=== PATIENT | male | born 1980 | race Caucasian/White ===

== ENCOUNTER 2022-03-18 18:41 | Inpatient (IN) | payer OTHER ==
[2022-03-18 19:34] VITALS: BMI 22.2
[2022-03-19] MEDS ORDERED: NICOTINE 10 MG CARTRIDGE (INHALER) IH PRN (08:50)
[2022-03-19] MEDS ORDERED: IBUPROFEN 400 MG TABLET (FP) PO PRN (08:50)
[2022-03-19] MEDS ORDERED: P-EPHED 60MG/TRIPROLIDI 2.5MG TABLET PO PRN (08:50)
[2022-03-19] MEDS ORDERED: MAG HYDROX/AL HYDROX/SIMETH 30 ML UNIT-DOSE CUP PO PRN (08:50)
[2022-03-19] MEDS ORDERED: POLYETHYLENE GLYCOL (HEALTHYLAX) 3350 17 GM PACKET PO PRN (08:50)
[2022-03-19] MEDS ORDERED: MAGNESIUM HYDROX 2400MG/30ML ORAL SUSPENSION 30 ML CUP PO PRN (08:50)
[2022-03-19] MEDS ORDERED: LOPERAMIDE HCL 2 MG CAPSULE PO PRN (08:50)
[2022-03-19] MEDS ORDERED: BENZOCAINE/MENTHOL (CHLORASEPTIC ) LOZENGE MM PRN (08:50)
[2022-03-19] MEDS ORDERED: ACETAMINOPHEN 325 MG TABLET (FP) PO PRN (08:50)
[2022-03-19] MEDS ORDERED: guaiFENesin 200 MG/10 ML 10 ML UNIT-DOSE CUPS PO PRN (08:50)
[2022-03-19] MEDS: PRENATAL VITAMINS W/ FOLIC ACID TABLET (FP) PO SCH (11:00)
[2022-03-19] MEDS: hydrOXYzine PAMOATE 25 MG CAPSULE (FP) PO PRN (11:00)
[2022-03-19] MEDS: NICOTINE 7 MG/24 HOURS TOPICAL PATCH TD SCH (11:00)
[2022-03-19] MEDS ORDERED: hydrOXYzine PAMOATE 25 MG CAPSULE (FP) PO ONE (11:02)
[2022-03-19] MEDS ORDERED: IBUPROFEN 400 MG TABLET (FP) PO ONE (11:03)
[2022-03-19] MEDS ORDERED: TUBERCULIN PPD 5 TU/0.1ML VIAL ID ONE (13:21)
[2022-03-19] MEDS: diazePAM 5 MG TABLET PO PRN (13:35)
[2022-03-19 14:39] LABS: HEMATOCRIT 43.3 % (35.4-49); HEMOGLOBIN 14.6 GM/dL (11.7-16.9); MCH 30.9 pg (25.7-33.7); MCHC 33.8 g/dl (32.0-35.9); MEAN CELL VOLUME 91.5 fl (80-96); MEAN PLT VOLUME 9.3 fl (7.5-11.1); PLATELET COUNT 245 10^3/uL (134-434); RBC 4.73 M/mm3 (4.00-5.60); RDW 13.1 % (11.9-15.9); WHITE BLOOD COUNT 6.6 K/mm3 (4.0-10.0)
[2022-03-19 15:39] LABS: ALBUMIN 3.4 g/dl (3.4-5.0); BLOOD UREA NITROGEN 16.1 mg/dL (7-18); SYPHILIS W/ RPR CONF NON-REACTIVE (NONREACTIVE)
[2022-03-19 15:42] LABS: CREATININE 0.8 mg/dL (0.55-1.3)
[2022-03-19 15:44] LABS: BILIRUBIN,TOTAL 0.3 mg/dL (0.2-1); TOT PROT 6.7 g/dl (6.4-8.2)
[2022-03-19] MEDS: THIAMINE HCL 100 MG TABLET (FP) PO SCH (21:45)
[2022-03-19] MEDS: MELATONIN 5 MG TABLETS PO SCH (21:45)
[2022-03-20] MEDS: PRENATAL VITAMINS W/ FOLIC ACID TABLET (FP) PO SCH (10:08)
[2022-03-20] MEDS: diazePAM 5 MG TABLET PO PRN ×2 (10:09→20:04)
[2022-03-20] MEDS: hydrOXYzine PAMOATE 25 MG CAPSULE (FP) PO PRN (10:09)
[2022-03-20] MEDS: NICOTINE 7 MG/24 HOURS TOPICAL PATCH TD SCH (10:09)
[2022-03-20] MEDS: cloNIDine HCL 0.1 MG TABLET PO PRN ×2 (15:19→21:34)
[2022-03-20] MEDS: THIAMINE HCL 100 MG TABLET (FP) PO SCH (21:33)
[2022-03-20] MEDS: MELATONIN 5 MG TABLETS PO SCH (21:33)
[2022-03-21] MEDS: diazePAM 5 MG TABLET PO PRN ×2 (05:35→17:38)
[2022-03-21] MEDS: PRENATAL VITAMINS W/ FOLIC ACID TABLET (FP) PO SCH (10:58)
[2022-03-21] MEDS: NICOTINE 7 MG/24 HOURS TOPICAL PATCH TD SCH (10:58)
[2022-03-21] MEDS ORDERED: LACTULOSE 20 GM/30 ML UDC (FOR ORAL USE ONLY) PO SCH (13:00)
[2022-03-21] MEDS: cloNIDine HCL 0.1 MG TABLET PO PRN ×2 (13:20→21:46)
[2022-03-21] MEDS: LACTULOSE 20 GM/30 ML UDC (FOR ORAL USE ONLY) PO SCH (17:28)
[2022-03-21 21:18] LABS: PH,URINE 6.5 (5.0-8.0); URINE APPEARANCE CLEAR; URINE BILIRUBIN NEGATIVE (NEGATIVE); URINE COLOR YELLOW; URINE GLUCOSE (UA) NEGATIVE (NEGATIVE); URINE KETONE NEGATIVE (NEGATIVE); URINE LEUK ESTERASE NEGATIVE (NEGATIVE); URINE NITRITE NEGATIVE (NEGATIVE); URINE PROTEIN NEGATIVE (NEGATIVE); URINE UROBILINOGEN 0.2 mg/dL (0.2-1.0)
[2022-03-21] MEDS: MELATONIN 5 MG TABLETS PO SCH (21:46)
[2022-03-21] MEDS: THIAMINE HCL 100 MG TABLET (FP) PO SCH (21:46)
[2022-03-22] MEDS: PRENATAL VITAMINS W/ FOLIC ACID TABLET (FP) PO SCH (09:10)
[2022-03-22] MEDS: cloNIDine HCL 0.1 MG TABLET PO PRN (09:10)
[2022-03-22] MEDS: NICOTINE 7 MG/24 HOURS TOPICAL PATCH TD SCH (09:11)
[2022-03-22] MEDS: LACTULOSE 20 GM/30 ML UDC (FOR ORAL USE ONLY) PO SCH (09:11)
[2022-03-22 10:15] VITALS: BP 127/69; PULSE 102; RESP 18; TEMP 98.2
== END 2022-03-22 09:39 | disposition left against medical advice (07) | DRG 770 ==
LOC: YASAS 18:41 → Y3W 03-19 12:35
PROVIDERS: ADMIT Allergy & Immunology; ATTEND Psychiatry & Neurology Pain Medicine
PROC: HZ42ZZZ Group Counseling for Substance Abuse Treatment, Cognitive-Behavioral (ICD-10-PCS; principal; 2022-03-19)
DX: F10.20 Alcohol dependence, uncomplicated (principal); F14.20 Cocaine dependence, uncomplicated; F12.20 Cannabis dependence, uncomplicated; F17.210 Nicotine dependence, cigarettes, uncomplicated; F41.9 Anxiety disorder, unspecified; R79.89 Other specified abnormal findings of blood chemistry; Z28.310 Unvaccinated for COVID-19; Z28.9 Immunization not carried out for unspecified reason
CPT/HCPCS: 36415; 80053; 81003; 82140; 85027; 86780; 86803; 93005; 93010; C9803-CS; U0003; U0005

== ENCOUNTER 2022-06-11 15:20 | Inpatient (IN) | payer OTHER ==
[2022-06-11 16:33] VITALS: BMI 23.6
[2022-06-11] MEDS ORDERED: DICYCLOMINE HCL 10 MG CAPSULE PO PRN (19:13)
[2022-06-11] MEDS ORDERED: MAG HYDROX/AL HYDROX/SIMETH 30 ML UNIT-DOSE CUP PO PRN (19:13)
[2022-06-11] MEDS ORDERED: METHOCARBAMOL 500 MG TABLET PO PRN (19:13)
[2022-06-11] MEDS ORDERED: BENZONATATE 200 MG CAPSULE PO PRN (19:13)
[2022-06-11] MEDS ORDERED: guaiFENesin 600 MG TABLET.ER (FP) PO PRN (19:13)
[2022-06-11] MEDS ORDERED: NALOXONE HCL (KLOXXADO) 8 MG SPRAY NS PRN (19:13)
[2022-06-11] MEDS ORDERED: NICOTINE 10 MG CARTRIDGE (INHALER) IH PRN (19:13)
[2022-06-11] MEDS ORDERED: hydrOXYzine PAMOATE 25 MG CAPSULE (FP) PO PRN (19:13)
[2022-06-11] MEDS ORDERED: NALOXONE HCL 0.4 MG/ML VIAL IM PRN (19:13)
[2022-06-11] MEDS ORDERED: BENZOCAINE/MENTHOL (CHLORASEPTIC ) LOZENGE MM PRN (19:13)
[2022-06-11] MEDS ORDERED: LOPERAMIDE HCL 2 MG CAPSULE PO PRN (19:13)
[2022-06-11] MEDS ORDERED: ONDANSETRON *ODT* 4 MG TABLET SL PRN (19:13)
[2022-06-11] MEDS ORDERED: BISMUTH SUBSALICYLATE 524 MG/30 ML PO PRN (19:13)
[2022-06-11] MEDS ORDERED: IBUPROFEN 400 MG TABLET (FP) PO PRN (19:13)
[2022-06-11] MEDS ORDERED: ACETAMINOPHEN 325 MG TABLET (FP) PO PRN (19:13)
[2022-06-11] MEDS ORDERED: POLYETHYLENE GLYCOL (HEALTHYLAX) 3350 17 GM PACKET PO PRN (19:13)
[2022-06-11] MEDS ORDERED: MAGNESIUM HYDROX 2400MG/30ML ORAL SUSPENSION 30 ML CUP PO PRN (19:13)
[2022-06-11] MEDS ORDERED: IBUPROFEN 600 MG TABLET (FP) PO PRN (19:13)
[2022-06-11] MEDS ORDERED: diazePAM 5 MG TABLET ONE (20:53)
[2022-06-11] MEDS: diazePAM 5 MG TABLET PO PRN (20:55)
[2022-06-11] MEDS: THIAMINE HCL 100 MG TABLET (FP) PO SCH (22:47)
[2022-06-11] MEDS: diazePAM 5 MG TABLET PO SCH (22:47)
[2022-06-11] MEDS: MELATONIN 5 MG TABLETS PO SCH (22:47)
[2022-06-12] MEDS: diazePAM 5 MG TABLET PO SCH ×4 (05:32→22:16)
[2022-06-12 10:27] LABS: HEMATOCRIT 43.3 % (35.4-49); HEMOGLOBIN 14.8 GM/dL (11.7-16.9); MCH 30.2 pg (25.7-33.7); MCHC 34.3 g/dl (32.0-35.9); MEAN PLT VOLUME 9.2 fl (7.5-11.1); PLATELET COUNT 255 10^3/uL (134-434); RBC 4.92 M/mm3 (4.00-5.60); RDW 12.7 % (11.9-15.9); WHITE BLOOD COUNT 5.7 K/mm3 (4.0-10.0)
[2022-06-12 10:43] LABS: ALBUMIN 3.3 g/dl (3.4-5.0); CALCIUM 9.4 mg/dL (8.5-10.1)
[2022-06-12 10:44] LABS: BLOOD UREA NITROGEN 12.1 mg/dL (7-18)
[2022-06-12] MEDS: PRENATAL VITAMINS W/ FOLIC ACID TABLET (FP) PO SCH (10:45)
[2022-06-12 10:46] LABS: CREATININE 0.7 mg/dL (0.55-1.3)
[2022-06-12 10:48] LABS: BILIRUBIN,TOTAL 0.4 mg/dL (0.2-1); TOT PROT 6.6 g/dl (6.4-8.2)
[2022-06-12] MEDS: diazePAM 5 MG TABLET PO PRN (19:55)
[2022-06-12] MEDS: THIAMINE HCL 100 MG TABLET (FP) PO SCH (22:17)
[2022-06-12] MEDS: MELATONIN 5 MG TABLETS PO SCH (22:17)
[2022-06-13] MEDS: diazePAM 5 MG TABLET PO SCH ×2 (05:35→13:58)
[2022-06-13 09:32] VITALS: BP 100/60
[2022-06-13] MEDS: PRENATAL VITAMINS W/ FOLIC ACID TABLET (FP) PO SCH (10:28)
[2022-06-13 13:19] VITALS: PULSE 75; RESP 17; TEMP 96.9
[2022-06-14] MEDS ORDERED: diazePAM 5 MG TABLET PO SCH (06:00)
[2022-06-15] MEDS ORDERED: diazePAM 5 MG TABLET PO ONE (06:00)
== END 2022-06-13 13:58 | disposition left against medical advice (07) | DRG 770 ==
LOC: YASAS 15:20 → Y3N 20:44
PROVIDERS: ADMIT Allergy & Immunology; ATTEND Surgery
PROC: HZ2ZZZZ Detoxification Services for Substance Abuse Treatment (ICD-10-PCS; principal; 2022-06-11)
DX: F13.230 Sedative, hypnotic or anxiolytic dependence with withdrawal, uncomplicated (principal); F14.20 Cocaine dependence, uncomplicated; F15.20 Other stimulant dependence, uncomplicated; F17.210 Nicotine dependence, cigarettes, uncomplicated; F41.1 Generalized anxiety disorder; Z28.310 Unvaccinated for COVID-19; Z28.9 Immunization not carried out for unspecified reason; Z59.00 Homelessness unspecified
CPT/HCPCS: 36415; 80053; 85027; 86780; 87811; C9803-CS; U0003; U0005